=== PATIENT | female | born 1975 | race Caucasian/White ===

== ENCOUNTER 2017-04-06 14:26 | Outpatient (CLI) | payer OTHER ==
[2017-04-06 15:13] LABS: ADD MAN DIFF? NO
[2017-04-06 15:17] LABS: BASOPHILS % 0.2 % (0.0-2.0); EOSINOPHILS # 0.2 10^3/ul (0.0-0.5); EOSINOPHILS % 1.7 % (0.0-7.0); HEMOGLOBIN 11.8 g/dl (12.0-16.0); LYMPHOCYTES # 1.5 10^3/ul (0.8-2.9); LYMPHOCYTES % 16.5 % (15.0-51.0); MEAN CORPUSCULAR HEMOGLOBIN 30.8 pg (29.0-33.0); MEAN CORPUSCULAR HGB CONC 33.7 g/dl (32.0-37.0); MEAN CORPUSCULAR VOLUME 91.4 fl (82.0-101.0); MEAN PLATELET VOLUME 11.8 fl (7.4-10.4); MONOCYTE # 0.6 10^3/ul (0.3-0.9); MONOCYTES % 7.2 % (0.0-11.0); NEUTROPHIL # 6.6 10^3/ul (1.6-7.5); NEUTROPHILS % 73.7 % (39.0-77.0); PLATELET COUNT 156 10^3/UL (140-415); RED BLOOD COUNT 3.83 10^6/ul (4.20-5.40); RED CELL DISTRIBUTION WIDTH 14.1 % (11.5-14.5)
[2017-04-06 15:17] LABS: WHITE BLOOD COUNT 8.9 10^3/ul (4.8-10.8)
[2017-04-06 15:31] LABS: ALANINE AMINOTRANSFERASE 25 IU/L (13-69); ALBUMIN 3.2 g/dl (3.3-4.9); ALKALINE PHOSPHATASE 114 IU/L (42-121); ANION GAP 12 (8-16); ASPARTATE AMINO TRANSFERASE 17 IU/L (15-46); BLOOD UREA NITROGEN 11 mg/dl (7-20); CALCIUM 8.8 mg/dl (8.4-10.2); CARBON DIOXIDE 24 mmol/L (21-31); CHLORIDE 106 mmol/L (97-110); CREATININE 1.01 mg/dl (0.44-1.00); GLUCOSE 101 mg/dl (70-220); POTASSIUM 3.8 mmol/L (3.5-5.1); SODIUM 138 mmol/L (135-144); TOTAL PROTEIN 6.4 g/dl (6.1-8.1); URIC ACID 4.6 mg/dl (3.1-7.9)
[2017-04-06 15:34] LABS: INR 0.89; PROTIME 12.1 Sec (11.9-14.9); PT RATIO 0.9
[2017-04-06 15:35] LABS: PARTIAL THROMBOPLASTIN TIME 28.1 Sec (25.0-35.0)
[2017-04-06 16:01] LABS: ADD UMIC NO; UR ASCORBIC ACID 40 mg/dL (NEGATIVE); UR BILIRUBIN (Dip) NEGATIVE (NEGATIVE); UR BLOOD (Dip) NEGATIVE (NEGATIVE); UR CLARITY CLEAR (CLEAR); UR COLOR YELLOW (YELLOW); UR GLUCOSE (Dip) 1+ mg/dL (NEGATIVE); UR KETONES (Dip) TRACE mg/dL (NEGATIVE); UR LEUKOCYTE ESTERASE (Dip) NEGATIVE Leu/ul (NEGATIVE); UR NITRITE (Dip) NEGATIVE (NEGATIVE); UR TOTAL PROTEIN (Dip) NEGATIVE (NEGATIVE); UR UROBILINOGEN (Dip) 1+ mg/dL (NEGATIVE)
== END 2017-04-06 18:40 | disposition home or self-care (01) ==
LOC: OBT 14:26 → L-D 14:26 → OBT 18:40
DX: O26.893 Other specified pregnancy related conditions, third trimester (principal); R10.9 Unspecified abdominal pain; O09.523 Supervision of elderly multigravida, third trimester; O34.219 Maternal care for unspecified type scar from previous cesarean delivery; Z3A.34 34 weeks gestation of pregnancy
CPT/HCPCS: 76818; 80053; 81003; 84560; 85025; 85384; 85610; 85730

== ENCOUNTER 2017-05-04 00:20 | Inpatient (IN) | payer OTHER ==
[2017-05-04] MEDS: LACTATED RINGER'S 1,000 ML IV ×5 (00:30→20:50)
[2017-05-04] MEDS ORDERED: LACTATED RINGER'S 500 ML IV (00:52)
[2017-05-04] MEDS ORDERED: BUTORPHANOL 2 MG INJ IV (01:00)
[2017-05-04] MEDS ORDERED: OXYTOCIN 30 UNITS/LR 500 ML IV (01:00)
[2017-05-04] MEDS ORDERED: AMPICILLIN 2 GM/NS (PMX) 100 ML IV (01:00)
[2017-05-04] MEDS ORDERED: LIDOCAINE 1% (MPF) 30 ML INJ INJ (01:00)
[2017-05-04] MEDS ORDERED: MISOPROSTOL 200 MCG TAB PR (01:00)
[2017-05-04] MEDS ORDERED: IBUPROFEN 600 MG TAB PO (01:00)
[2017-05-04] MEDS ORDERED: METHYLERGONOVINE 0.2 MG INJ IM (01:00)
[2017-05-04] MEDS ORDERED: CARBOPROST 250 MCG INJ IM (01:00)
[2017-05-04] MEDS ORDERED: HYDROCODONE/APAP (5/325) TAB PO (01:00)
[2017-05-04 01:32] LABS: ADD MAN DIFF? NO
[2017-05-04 01:34] LABS: BASOPHILS % 0.2 % (0.0-2.0); EOSINOPHILS # 0.1 10^3/ul (0.0-0.5); EOSINOPHILS % 1.5 % (0.0-7.0); HEMATOCRIT 36.9 % (37.0-47.0); HEMOGLOBIN 12.8 g/dl (12.0-16.0); LYMPHOCYTES # 2.1 10^3/ul (0.8-2.9); LYMPHOCYTES % 22.8 % (15.0-51.0); MEAN CORPUSCULAR HEMOGLOBIN 30.8 pg (29.0-33.0); MEAN CORPUSCULAR HGB CONC 34.7 g/dl (32.0-37.0); MEAN CORPUSCULAR VOLUME 88.9 fl (82.0-101.0); MEAN PLATELET VOLUME 12.1 fl (7.4-10.4); MONOCYTE # 0.5 10^3/ul (0.3-0.9); MONOCYTES % 5.4 % (0.0-11.0); NEUTROPHIL # 6.4 10^3/ul (1.6-7.5); NEUTROPHILS % 69.7 % (39.0-77.0); PLATELET COUNT 145 10^3/UL (140-415); RED BLOOD COUNT 4.15 10^6/ul (4.20-5.40)
[2017-05-04 01:34] LABS: WHITE BLOOD COUNT 9.1 10^3/ul (4.8-10.8)
[2017-05-04 01:49] LABS: INR 0.83; PROTIME 11.5 Sec (11.9-14.9); PT RATIO 0.9
[2017-05-04 01:50] LABS: PARTIAL THROMBOPLASTIN TIME 31.7 Sec (25.0-35.0)
[2017-05-04 01:53] LABS: ALANINE AMINOTRANSFERASE 33 IU/L (13-69); ALKALINE PHOSPHATASE 173 IU/L (42-121); ANION GAP 12 (8-16); ASPARTATE AMINO TRANSFERASE 22 IU/L (15-46); BLOOD UREA NITROGEN 11 mg/dl (7-20); CALCIUM 9.4 mg/dl (8.4-10.2); CARBON DIOXIDE 19 mmol/L (21-31); CHLORIDE 108 mmol/L (97-110); CREATININE 0.67 mg/dl (0.44-1.00); GLUCOSE 90 mg/dl (70-220); POTASSIUM 4.1 mmol/L (3.5-5.1); SODIUM 135 mmol/L (135-144)
[2017-05-04 01:54] LABS: ALBUMIN 3.2 g/dl (3.3-4.9); ALBUMIN/GLOBULIN RATIO 0.84
[2017-05-04 01:54] LABS: URIC ACID 4.8 mg/dl (3.1-7.9)
[2017-05-04 02:24] LABS: HEPATITIS B SURFACE ANTIGEN NEGATIVE (NEGATIVE)
[2017-05-04] MEDS ORDERED: MAGNESIUM SULFATE 4 GM/100 ML 100 ML (02:28)
[2017-05-04] MEDS ORDERED: LABETALOL HCL 20MG INJ IV (02:30)
[2017-05-04] MEDS: MAGNESIUM SULFATE 4 GM/100 ML 100 ML IVPB (02:40)
[2017-05-04] MEDS: LABETALOL HCL 20MG INJ IV (02:59)
[2017-05-04] MEDS: MAGNESIUM SULFATE 20 GM/500 ML 500 ML IV (03:07)
[2017-05-04 03:17] LABS: ADD UMIC NO; UR ASCORBIC ACID NEGATIVE (NEGATIVE); UR BILIRUBIN (Dip) NEGATIVE (NEGATIVE); UR BLOOD (Dip) NEGATIVE (NEGATIVE); UR CLARITY CLEAR (CLEAR); UR COLOR STRAW (YELLOW); UR GLUCOSE (Dip) NEGATIVE (NEGATIVE); UR KETONES (Dip) NEGATIVE (NEGATIVE); UR LEUKOCYTE ESTERASE (Dip) NEGATIVE Leu/ul (NEGATIVE); UR NITRITE (Dip) NEGATIVE (NEGATIVE); UR SPECIFIC GRAVITY (Dip) 1.011 (1.003-1.030); UR TOTAL PROTEIN (Dip) NEGATIVE (NEGATIVE); UR UROBILINOGEN (Dip) NEGATIVE (NEGATIVE)
[2017-05-04] MEDS ORDERED: FENTAnyl 2MCG/ML-ROPIV 0.2% 100 ML (03:43)
[2017-05-04] MEDS ORDERED: DIPHENHYDRAMINE 50 MG INJ IV (04:30)
[2017-05-04] MEDS ORDERED: NALOXONE (0.4 MG/ML) INJ IV (04:30)
[2017-05-04] MEDS ORDERED: AMPICILLIN 1 GM/NS (PMX) 50 ML IV (05:00)
[2017-05-04] MEDS: EPHEDrine SULFATE 50 MG/5 ML SYG IV (05:17)
[2017-05-04] MEDS: FENTAnyl 2MCG/ML-ROPIV 0.2% 100 ML BAG EPI ×2 (13:44→21:05)
[2017-05-04 15:00] LABS: RAPID PLASMA REAGIN NONREACTIVE (NR)
[2017-05-05] MEDS: LACTATED RINGER'S 1,000 ML IV (03:53)
[2017-05-05] MEDS: ONDANSETRON 4 MG INJ IV (04:02)
[2017-05-05] MEDS: FENTAnyl 2MCG/ML-ROPIV 0.2% 100 ML BAG EPI (05:24)
[2017-05-05] MEDS: OXYTOCIN 30 UNITS/LR 500 ML IV ×2 (06:13→06:16)
[2017-05-05] MEDS ORDERED: DIBUCAINE 1% 30 GM OINT TOP (09:00)
[2017-05-05] MEDS ORDERED: CARBOPROST 250 MCG INJ IM (09:00)
[2017-05-05] MEDS ORDERED: OXYTOCIN 30 UNITS/LR 500 ML IV (09:00)
[2017-05-05] MEDS ORDERED: HYDROCODONE/APAP (5/325) TAB PO (09:00)
[2017-05-05] MEDS ORDERED: ACETAMINOPHEN 325 MG TAB PO (09:00)
[2017-05-05] MEDS ORDERED: MISOPROSTOL 200 MCG TAB PR (09:00)
[2017-05-05] MEDS: SENNA/DOCUSATE NA (8.6MG/50MG) TAB PO ×2 (09:35→21:56)
[2017-05-05] MEDS: WITCH HAZEL/GLYCERIN PAD PR (10:38)
[2017-05-05] MEDS: BENZOCAINE 20% 56 ML SPRAY TOP (10:38)
[2017-05-05] MEDS: LACTATED RINGER'S 1,000 ML IV* ×2 (10:38→16:59)
[2017-05-05 10:47] LABS: RUBELLA ANTIBODY - IGG 2.35 index
[2017-05-05] MEDS: IBUPROFEN 600 MG TAB PO ×2 (11:46→18:10)
[2017-05-06] MEDS: IBUPROFEN 600 MG TAB PO ×5 (00:03→23:59)
[2017-05-06] MEDS: SENNA/DOCUSATE NA (8.6MG/50MG) TAB PO ×2 (09:14→21:09)
[2017-05-06 10:34] LABS: ADD MAN DIFF? NO
[2017-05-06 10:38] LABS: BASOPHILS % 0.3 % (0.0-2.0); EOSINOPHILS # 0.2 10^3/ul (0.0-0.5); EOSINOPHILS % 1.8 % (0.0-7.0); HEMATOCRIT 32.6 % (37.0-47.0); HEMOGLOBIN 11.1 g/dl (12.0-16.0); LYMPHOCYTES # 1.6 10^3/ul (0.8-2.9); LYMPHOCYTES % 18.2 % (15.0-51.0); MEAN CORPUSCULAR HEMOGLOBIN 31.3 pg (29.0-33.0); MEAN CORPUSCULAR VOLUME 91.8 fl (82.0-101.0); MEAN PLATELET VOLUME 11.5 fl (7.4-10.4); MONOCYTE # 0.5 10^3/ul (0.3-0.9); MONOCYTES % 5.2 % (0.0-11.0); NEUTROPHIL # 6.6 10^3/ul (1.6-7.5); NEUTROPHILS % 73.4 % (39.0-77.0); PLATELET COUNT 123 10^3/UL (140-415); RED BLOOD COUNT 3.55 10^6/ul (4.20-5.40); RED CELL DISTRIBUTION WIDTH 14.4 % (11.5-14.5)
[2017-05-07] MEDS: IBUPROFEN 600 MG TAB PO ×2 (06:00→11:49)
[2017-05-07] MEDS: DIPHTH/TET/ACEL PERTUSS (ADULT) 0.5 ML VIAL IM* (08:34)
[2017-05-07] MEDS: SENNA/DOCUSATE NA (8.6MG/50MG) TAB PO (08:35)
[2017-05-07 11:02] LABS: RUBELLA ANTIBODY - IGM <20.00 AU/mL
== END 2017-05-07 14:50 | disposition home or self-care (01) | DRG 775 ==
LOC: OBT 00:20 → L-D 00:20 → PP1 05-05 08:36 → OBT 00:50 → L-D 00:50
PROVIDERS: Obstetrics & Gynecology
PROC: 4A1HXCZ Monitoring of Products of Conception, Cardiac Rate, External Approach (ICD-10-PCS; 2017-05-04)
PROC: 10E0XZZ Delivery of Products of Conception, External Approach (ICD-10-PCS; principal; 2017-05-05)
DX: O13.4 Gestational [pregnancy-induced] hypertension without significant proteinuria, complicating childbirth (principal); O34.219 Maternal care for unspecified type scar from previous cesarean delivery; Z3A.38 38 weeks gestation of pregnancy; Z37.0 Single live birth
CPT/HCPCS: 36415; 62319; 76815; 80053; 81003; 84560; 85025; 85610; 85730; 86592; 86762; 86850; 86900; 86901; 87340; 88307; 96360; 99464